=== PATIENT | female | born 1980 | race Caucasian/White ===

== ENCOUNTER 2023-12-27 11:21 | Outpatient (AMB) | payer OTHER, SELFPAY ==
--- NOTE | 2023-12-27 11:26 | A.OFFPC_ITS ---
Vital Signs 12/27/23 11:35 Height 5 ft 5 in Weight 181 lb 8 oz BMI 30.2 BP 102/78 Blood Pressure Location Lt brachial Position Sitting Respiration 14 Pulse 72 Pulse Source Pulse Oximeter Temp 98.6 F Temp Source Oral Pulse Oximetry (%) 99 Oxygen Delivery Method Room Air Intake Visit Reasons: Est Care IBS Intake Note: New patient visit Showplace Manager Required: No Medication List - Last Reconciled 12/27/23 by Barbara Ricks PA-C cetirizine (Zyrtec) 10 mg PO DAILY PRN cholecalciferol (vitamin D3) 25 mcg PO DAILY diphenhydramine HCl (Benadryl Allergy) 50 mg PO Q6H PRN diphenhydramine HCl (Benadryl) 25 mg PO BEDTIME PRN docusate sodium 100 mg PO DAILY methylprednisolone 32 mg PO DAILY psyllium 1 tbsp PO DAILY Tobacco use date assessed: 12/27/23 Dental Screening Dental Screen Date: 12/27/23 Did you have a dental visit in the last 12 months?: Yes Did you have a dental problem in the last 6 months where you did not have access to dental care?: No Was dental information given to patient?: Patient has dentist HPI Est Care IBS HPI Details Patient is a 43-year-old female with a significant past medical history of IBS, insomnia, family hx of breast cancer presenting today to [facility]. She is transferring from [place]. She says that she made this appointment because she has IBS symptoms. Records are not yet available. GI: She states that it is frustrated that her stomach is constantly distended x 15 years. She is frustrated that she continues to have a belly . She reports a persistent pain the RUQ pain but can move around the mid abdomen. She denies any n/v. She does get intermittent diarrhea and constipation. She states that she followed up with Dr. Manzano but did not feel that she did as much of a workup as she would have liked. She did have a colonoscopy in 2021 which was normal. She states that she told her that she had IBS mixed and to try fiber. She did not feel any real benefit from this and states that she researched IBS on the Internet and was frustrated that not more labs were done. She tried acupuncture. She has not tried an elimination diet. She brings in a food journal today. No blood in stool. Colonoscopy: Sep 2021- WNL due in 2031 Mammogram: UTD, gets u/s and MRIs Pap: s/p partial hysterectomy (2019) - fibroid, follows with [facility] Maternal and Paternal grandmothers breast ca, mother had breast ca - pt is brca neg [facility] Medical History (Updated 12/27/23 @ 12:03 by Barbara Ricks PA-C) Alternating constipation and diarrhea RUQ abdominal pain Social History Housing: House Patient Tobacco Use Status: Never used Tobacco e-Cigarette/Vaping Use: Never Used Second Hand Smoke Exposure: Yes (past) service: No Current occupational status: employed and unemployed Cognitive needs: No Hearing needs: No Vision needs: Yes (glasses) Questionnaire PHQ-9 Over the last 2 weeks, how often have you been bothered by any of the following problems? 1. Little interest or pleasure in doing things: not at all 2. Feeling down, depressed, or hopeless: not at all 3. Trouble falling or staying asleep, or sleeping too much: nearly every day 4. Feeling tired or having little energy: more than half the days 5. Poor appetite or overeating: not at all 6. Feeling bad about yourself - or that you are a failure or have let yourself or your family down: not at all 7. Trouble concentrating on things, such as reading the newspaper or watching television: not at all 8. Moving or speaking so slowly that other people could have noticed. Or the opposite - being so fidgety or restless that you have been moving around a lot more than usual: several days 9. Thoughts that you would be better off or of hurting yourself in some way: not at all Total score: 6 Depression Screening Interpretation: Positive (has a hx of insomnia, does not want treatment) Depression Screening Follow-up: Declines treatment Depression Screening Done: Yes 49914 - PHQ-9 Billing: Yes Source: Developed by Drs. Jose Nuñez, Bettina Caballero, Isidoro Rodriguez and colleagues, with an educational petar from [email or web address]. Thrive Questionnaire Date Thrive assessed: 12/27/23 I am a: Patient What is your living situation today?: I have a steady place to live Within the past 12 months, did the food you bought not last and you didn't have the money to get more?: Never true Within the past 12 months, did you worry whether your food would run out before you got money to buy more?: Never true Do you have trouble paying for medicines?: No Do you have trouble getting transportation to medical appointments?: No Do you have trouble paying your heating and electricity bill?: No Do you have trouble taking care of your child, family member or friend?: No Do you have trouble with day-to-day activities such as bathing, preparing meals, shopping, managing finances, etc.?: No Are you currently unemployed and looking for a job?: No Are you interested in more education?: No Please select the resources that you would like help with: None Currently or been in a relationship where the following occur: no concerns reported THRIVE Score: 0 AUDIT C Alcohol Use Questionnaire (AUDIT-C) 1. How often do you have a drink containing alcohol?: Monthly or less 2. How many drinks containing alcohol do you have on a typical day when you are drinking?: 5 or 6 3. How often do you have six or more drinks on one occasion?: Never Total Score: 3 KARLY-7 AMB Questionnaire KARLY-7 Date KARLY - 7 assessed: 12/27/23 Feeling nervous, anxious, or on edge: 1 = Several days Not being able to stop or control worryin = Not at all Worrying too much about different things: 0 = Not at all Trouble relaxin = Not at all Being so restless that it is hard to sit still: 0 = Not at all Becoming easily annoyed or irritable: 0 = Not at all Feeling afraid as if something awful might happen: 0 = Not at all Total KARLY-7 score (0-4 normal; 5-9 mild; 10-14 moderate; 15-21 severe): 1 Source: Developed by Drs. Jose Nuñez, Bettina Caballero, Isidoro Rodriguez and colleagues, with an educational petar from [email or web address]. KARLY-7 Assessment Billing KARLY-7 Assessment Tool: KARLY-7 Assessment 09654 Physical exam (Primary Care) Vital Signs: Last Vital Signs Temp 98.6 F 12/27/23 11:35 Pulse 72 12/27/23 11:35 Resp 14 12/27/23 11:35 BP 102/78 12/27/23 11:35 Pulse Ox 99 12/27/23 11:35 Oxygen Delivery Method Room Air 12/27/23 11:35 BMI result Body Mass Index 30.2 BMI Assessment/Plan discussion: High BMI High, discussed plan: lifestyle and dietary (reducing processed foods) Tobacco/Smoking Status: Tobacco use Status Tobacco use date assessed 12/27/23 12/27/23 11:39 Patient Tobacco Use Status Never used Tobacco 12/27/23 11:39 e-Cigarette/Vaping Use Never Used 12/27/23 11:39 PHQ-9: PHQ-9 Score PHQ-9: Total score 6 12/27/23 11:54 Depression Screening Interpretation: Positive (has a hx of insomnia, does not want treatment) Depression Screening Follow-up: Declines treatment Thrive Assessment: Date of Thrive Assessment Date Thrive assessed 12/27/23 12/27/23 11:39 Currently or been in a relationship where the following occur: no concerns reported Const Orientation/consciousness: patient oriented x3 HENMT Ears: hearing grossly normal bilaterally Neck Thyroid: Thyroid normal Lymphatic: no lymphadenopathy noted Resp Auscultation: clear to auscultation bilaterally Cardio Rate: regular rate Rhythm: regular rhythm Heart sounds: S1 normal heart sound present and S2 normal heart sound present GI Inspection: Yes normal to inspection Palpation (GI): Soft to palpation and Other GI palpation findings present (nontender, no cva tenderness) Auscultation: normoactive bowel sounds Rectal Exam - Female: deferred Skin General skin exam: no rashes or lesions noted Neuro General: patient oriented x3, gait normal and no focal motor deficits Assessment and Plan Assessment & Plan (1) RUQ abdominal pain: Code(s): R10.11 - Right upper quadrant pain Plan: u/s ordered (2) Alternating constipation and diarrhea: Code(s): R19.8 - Other specified symptoms and signs involving the digestive system and abdomen Plan: discussed elimination diet. has an appointment with allergy and immunology in the fall has seen gi labs ordered abdominal exam is benign today. f/u 6-8 weeks or sooner prn. Orders: Orders Complete Blood Count Auto Diff Today R10.11 - Right upper quadrant pain, R19.8 - Other specified symptoms and signs involving the digestive system and abdomen, Z13.220 - Encounter for screening for lipoid disorders Comprehensive [place]. Panel Fast Today R10.11 - Right upper quadrant pain, R19.8 - Other specified symptoms and signs involving the digestive system and abdomen, Z13.220 - Encounter for screening for lipoid disorders Lipid Panel Today R10.11 - Right upper quadrant pain, R19.8 - Other specified symptoms and signs involving the digestive system and abdomen, Z13.220 - Encounter for screening for lipoid disorders TSH reflex Free T4 Today R10.11 - Right upper quadrant pain, R19.8 - Other specified symptoms and signs involving the digestive system and abdomen, Z13.220 - Encounter for screening for lipoid disorders Vitamin B12 and Folate Today R10.11 - Right upper quadrant pain, R19.8 - Other specified symptoms and signs involving the digestive system and abdomen, Z13.220 - Encounter for screening for lipoid disorders Vitamin D 25-OH Total Today E55.9 - Vitamin D deficiency, unspecified, R10.11 - Right upper quadrant pain, R19.8 - Other specified symptoms and signs involving the digestive system and abdomen, Z13.220 - Encounter for screening for lipoid disorders US abdomen limited Today R10.11 - Right upper quadrant pain, R19.8 - Other specified symptoms and signs involving the digestive system and abdomen, Z13.220 - Encounter for screening for lipoid disorders Coding Level of Care Code New Pt Level 3 (73347) Complex EM visit Add On G2211 Diagnoses RUQ abdominal pain R10.11 Alternating constipation and diarrhea R19.8 Additional Codes KARLY-7 Assessment Billing - KARLY-7 Assessment Tool: KARLY-7 Assessment 38916 ([id number])
[2023-12-27 11:35] VITALS: BP 102/78; PULSE 72; RESP 14; TEMP 37; O2SAT 99; BMI 30.2
== END 2023-12-27 12:10 | disposition home or self-care (01) ==
PROVIDERS: Visit Provider Physician Assistant
DX: R10.11 Right upper quadrant pain (principal); R19.8 Other specified symptoms and signs involving the digestive system and abdomen
CPT/HCPCS: 99203; G2211

== ENCOUNTER 2023-12-27 12:13 | Outpatient (REF) | payer OTHER, SELFPAY ==
[2023-12-27 14:27] LABS: MANUAL DIFF FLAG NO
[2023-12-27 14:32] LABS: Basophils Percent Auto 0.6 % (0-2); Eosinophils Absolute Auto 0.2 X10*3/uL (0.0-0.4); Eosinophils Percent Auto 3.2 % (0-4); Hematocrit 39.7 % (37.0-47.0); Hemoglobin 12.8 g/dl (12.0-16.0); Imm Gran Abs Auto 0.01 X10*3/uL (0.00-0.03); Imm Gran Pct Auto 0.2 % (0.0-0.4); Lymphocytes Absolute Auto 1.9 X10*3/uL (1.2-4.9); Lymphocytes Percent Auto 35.7 % (20-40); Mean Corpuscular HGB Conc 32.2 g/dl (31.0-35.0); Mean Corpuscular Hemoglobin 28.7 pg (27.0-33.0); Mean Platelet Volume 11.6 fL (9.4-12.3); Monocytes Absolute Auto 0.4 X10*3/uL (0.1-1.2); Monocytes Percent Auto 6.8 % (2-11); Neutrophils Absolute Auto 2.8 x10*3/uL (2.0-8.3); Neutrophils Percent Auto 53.5 % (45-73); Platelet Count 212 X10*3/uL (160-400); Red Blood Count 4.46 X10*6/uL (4.20-5.50); Red Cell Distribution Width 12.7 % (11.0-16.0); White Blood Count 5.3 X10*3/uL (4.8-10.8)
[2023-12-27 14:50] LABS: Alanine Aminotransferase 25 U/L (0-31); Albumin Level 4.4 g/dL (3.5-5.0); Alkaline Phosphatase 62 U/L (39-117); Anion Gap 13 (12-20); Aspartate Amino Transferase 20 U/L (5-31); Bilirubin Total 1.1 mg/dL (0.0-1.0); Blood Urea Nitrogen 12 mg/dL (9-16); Calcium 9.6 mg/dL (8.4-10.2); Carbon Dioxide 26 mmol/L (22-29); Chloride 104 mmol/L (96-108); Cholesterol 223 mg/dL (<200); Estimated Glomerular Filt Rate > 60; Glucose Fasting 94 mg/dL (60-99); HDL Cholesterol 44 mg/dL (>40); LDL Cholesterol Calculated 148 mg/dL (<100); Potassium 4.3 mmol/L (3.3-5.1); Sodium 139 mmol/L (135-145); Total Protein 7.8 g/dL (6.5-8.0); Triglycerides 159 mg/dL (<150)
[2023-12-27 15:05] LABS: Vitamin D 25-OH Total 40.4 ng/mL (>30)
[2023-12-27 15:44] LABS: Folate 7.4 ng/mL (> or = 4.0); Vitamin B12 461 pg/mL (200-900)
[2023-12-28 08:06] LABS: HBsAGNum1 0.28 S/CO (0.00-0.99); HIV AB/AG Nonreactive (Nonreactive); HIV Num 1 0.04 S/CO (0.00-0.99); Hepatitis B Surface Antigen Negative (Negative); ~HepC Num1 0.14 S/CO (0.00-0.79); ~Hepatitis C Antibody Nonreactive (Nonreactive)
[2023-12-28 08:25] LABS: Syphilis Screen Nonreactive (Nonreactive)
== END 2023-12-27 12:14 | disposition home or self-care (01) ==
LOC: HO.WFDLDS 12:13
PROVIDERS: Obstetrics & Gynecology Gynecology; Visit Provider Physician Assistant
DX: R10.11 Right upper quadrant pain (principal); R19.8 Other specified symptoms and signs involving the digestive system and abdomen; Z13.220 Encounter for screening for lipoid disorders; E55.9 Vitamin D deficiency, unspecified
CPT/HCPCS: 36415; 80053; 80061; 82306; 82607; 82746; 84443; 85025; 86780; 86803; 87340; 87389

== ENCOUNTER 2024-01-24 08:28 | Outpatient (REF) | payer OTHER, SELFPAY ==
--- NOTE | ~2024-01-24 | US_ITS ---
EXAMINATION: US ABDOMEN LIMITED CLINICAL INFORMATION: Right upper quadrant pain. COMPARISON: None available. TECHNIQUE: Real-time imaging of the right upper quadrant abdominal viscera. Limited visualization due to bowel gas. FINDINGS: PANCREAS: Limited visualization of pancreatic tail and head. Imaged portion of pancreatic body is unremarkable. LIVER: Increased hepatic parenchymal heterogeneity and echogenicity could be associated with hepatocellular disease/hepatic steatosis and substantially limits visualization. Correlation with liver function tests and clinical exam recommended to determine further management. GALLBLADDER: No gallstones. No gallbladder wall thickening. COMMON BILE DUCT: Normal in caliber measuring 0.2 cm in diameter. RIGHT KIDNEY: No hydronephrosis. No renal calculi. Limited visualization. The kidney measures 10.9 cm in maximum dimension. FREE FLUID: None. US/US abdomen limited IMPRESSION: Increased hepatic parenchymal heterogeneity and echogenicity could be associated with hepatocellular disease/hepatic steatosis and substantially limits visualization. Correlation with liver function tests and clinical exam recommended to determine further management.
== END 2024-01-24 08:29 | disposition home or self-care (01) ==
LOC: HO.HMGCX 08:28
PROVIDERS: PCP Physician Assistant; Visit Provider Physician Assistant
DX: R10.11 Right upper quadrant pain (principal); R19.8 Other specified symptoms and signs involving the digestive system and abdomen
CPT/HCPCS: 76705

== ENCOUNTER 2024-02-23 10:16 | Outpatient (AMB) | payer OTHER, SELFPAY ==
--- NOTE | 2024-02-23 10:38 | MHC.PC.OV ---
Vital Signs 02/23/24 10:40 Height 5 ft 5 in Weight 173 lb BMI 28.8 BP 106/62 Blood Pressure Location Lt brachial Position Sitting Respiration 13 Pulse 81 Pulse Source Pulse Oximeter Pulse Oximetry (%) 98 Oxygen Delivery Method Room Air Intake Visit Reasons: abdominal pain Intake Note: Patient is here to follow up for abdominal pain. Call Or Contact Centre Coach Required: No Accompanied by: Self / Same As Patient Allergies Iodinated Contrast Media Allergy (Severe, Verified 02/23/24 10:46) skin on fire Tobacco use date assessed: 12/27/23 Dental Screening Dental Screen Date: 12/27/23 HPI HPI Comments History of Present Illness Details Patient is a 43-year-old female with a significant past medical history of IBS, insomnia, family hx of breast cancer presenting for follow up She was recently seen by Barbara Ricks PA-C who noted GI: She states that it is frustrated that her stomach is constantly distended x 15 years. She is frustrated that she continues to have a belly . She reports a persistent pain the RUQ pain but can move around the mid abdomen. She denies any n/v. She does get intermittent diarrhea and constipation. She states that she followed up with Dr. Manzano but did not feel that she did as much of a workup as she would have liked. She did have a colonoscopy in 2021 which was normal. She states that she told her that she had IBS mixed and to try fiber. She did not feel any real benefit from this and states that she researched IBS on the Internet and was frustrated that not more labs were done. She tried acupuncture. She has not tried an elimination diet. She brings in a food journal today. No blood in stool. Colonoscopy: Sep 2021- WNL due in 2031 Mammogram: UTD, gets u/s and MRIs Pap: s/p partial hysterectomy (2019) - fibroid, follows with [facility] Maternal and Paternal grandmothers breast ca, mother had breast ca - pt is brca neg She recommended a food elimination diet Ordered abd u/s-mild hepatic steatosis The patient reports no relief with removing gluten from the diet. She notices some improvement but not consistent with the removal of dairy products. She has not taken any SSRI, TCAD, antispasmodics in the past for her symptoms ROS CONSTITUTIONAL: Denies weight loss, fever and chills. HEENT: Denies changes in vision and hearing. RESPIRATORY: Denies SOB and cough. CV: Denies palpitations and CP GI: Denies abdominal pain, nausea, vomiting and diarrhea. : Denies dysuria and urinary frequency. MSK: Denies new myalgia and joint pain. SKIN: Denies rash and pruritus. NEUROLOGICAL: Denies headache PSYCHIATRIC: Denies recent changes in mood. PHYSICAL EXAM: GENERAL: Alert and oriented x 3. NAD EYES: EOMI. Anicteric. HENT: Moist mucous membranes. No scleral icterus. No cervical lymphadenopathy. LUNGS: Clear to auscultation bilaterally. CARDIOVASCULAR: Regular rate and rhythm. No murmur. No JVD. ABDOMEN: Soft, non-tender +bs EXTREMITIES: No edema. Non-tender. SKIN: No rashes or lesions. Warm. NEUROLOGIC: No focal neurological deficits. CN II-XII grossly intact PSYCHIATRIC: Cooperative. Appropriate mood and affect [facility] Medical History (Updated 02/25/24 @ 08:34 by Naila Washington MD) Alternating constipation and diarrhea RUQ abdominal pain Social History Housing: House Patient Tobacco Use Status: Never used Tobacco e-Cigarette/Vaping Use: Never Used Second Hand Smoke Exposure: Yes (past) service: No Current occupational status: employed Current occupational exposures/hazards: No Cognitive needs: No Hearing needs: No Vision needs: Yes (glasses) Questionnaire Thrive Questionnaire Date Thrive assessed: 12/27/23 KARLY-7 AMB Questionnaire KARLY-7 Date KARLY - 7 assessed: 12/27/23 Source: Developed by Drs. Jose Nuñez, Bettina Caballero, Isidoro Rodriguez and colleagues, with an educational petar from [employer]. Physical exam (Primary Care) Vital Signs: Last Vital Signs Pulse 81 02/23/24 10:40 Resp 13 02/23/24 10:40 BP 106/62 02/23/24 10:40 Pulse Ox 98 02/23/24 10:40 Oxygen Delivery Method Room Air 02/23/24 10:40 BMI result Body Mass Index 28.8 Tobacco/Smoking Status: Tobacco use Status Tobacco use date assessed 12/27/23 02/23/24 10:40 Patient Tobacco Use Status Never used Tobacco 02/23/24 10:40 e-Cigarette/Vaping Use Never Used 02/23/24 10:40 Thrive Assessment: Date of Thrive Assessment Date Thrive assessed 12/27/23 02/23/24 10:40 Assessment and Plan Assessment & Plan (1) IBS (irritable bowel syndrome): Code(s): K58.9 - Irritable bowel syndrome without diarrhea Qualifiers: Irritable bowel syndrome type: with both diarrhea and constipation Qualified Code(s): K58.2 - Mixed irritable bowel syndrome Plan: Trial of linzess to see if helping with incomplete bowel movement overall helps both constipation and diarrhea (2) RUQ abdominal pain: Code(s): R10.11 - Right upper quadrant pain (3) Abdominal pain: Code(s): R10.9 - Unspecified abdominal pain Qualifiers: Abdominal location: generalized Qualified Code(s): R10.84 - Generalized abdominal pain (4) Abnormal ultrasound of abdomen: Code(s): R93.5 - Abnormal findings on diagnostic imaging of other abdominal regions, including retroperitoneum Orders: Orders CT abdomen wo/w IV con 02/23/24 K58.9 - Irritable bowel syndrome without diarrhea, R10.11 - Right upper quadrant pain, R10.9 - Unspecified abdominal pain, R93.5 - Abnormal findings on diagnostic imaging of other abdominal regions, including retroperitoneum Pancreatic Elastase-1 02/23/24 K58.9 - Irritable bowel syndrome without diarrhea, R10.9 - Unspecified abdominal pain, R93.5 - Abnormal findings on diagnostic imaging of other abdominal regions, including retroperitoneum Referrals Pelvic Social Work Administrator Referral M54.50 - Low back pain, unspecified, M95.5 - Acquired deformity of pelvis Medications: New linaclotide (Linzess) 145 mcg PO DAILY 90 caps 3RF 90 days Coding Level of Care Code Est Pt Level 4 (57920) Diagnoses Irritable bowel syndrome with both constipation and diarrhea K58.2 Irritable bowel syndrome type: with both diarrhea and constipation RUQ abdominal pain R10.11 Generalized abdominal pain R10.84 Abdominal location: generalized Abnormal ultrasound of abdomen R93.5
[2024-02-23 10:40] VITALS: BP 106/62; PULSE 81; RESP 13; O2SAT 98; BMI 28.8
== END 2024-02-23 11:18 | disposition home or self-care (01) ==
PROVIDERS: PCP Physician Assistant; Visit Provider Internal Medicine
DX: K58.2 Mixed irritable bowel syndrome (principal); R10.11 Right upper quadrant pain; R10.84 Generalized abdominal pain; R93.5 Abnormal findings on diagnostic imaging of other abdominal regions, including retroperitoneum
CPT/HCPCS: 99214

== ENCOUNTER 2024-03-14 12:00 | Outpatient (REF) | payer OTHER, SELFPAY ==
[2024-03-23 01:14] LABS: Pancreatic Elastase-1 >500 mcg/g
== END 2024-03-14 12:01 | disposition home or self-care (01) ==
LOC: HO.HMGCLNP 12:00
PROVIDERS: PCP Physician Assistant; Visit Provider Internal Medicine
DX: R10.9 Unspecified abdominal pain (principal); R93.5 Abnormal findings on diagnostic imaging of other abdominal regions, including retroperitoneum; K58.9 Irritable bowel syndrome, unspecified
CPT/HCPCS: 82656

== ENCOUNTER 2024-06-25 08:34 | Outpatient (REF) | payer OTHER, SELFPAY ==
[2024-06-25] MEDS: iohexoL 350 MG/ML 100 ML INFUS..BTL IV (10:55)
[2024-06-25] MEDS: Barium Sulfate Oral (Vanilla) 450 ML ORAL.SUSP PO ×2 (10:56)
== END 2024-06-25 08:35 | disposition home or self-care (01) ==
LOC: HO.CT 08:34
PROVIDERS: PCP Physician Assistant; Visit Provider Internal Medicine
DX: R19.8 Other specified symptoms and signs involving the digestive system and abdomen (principal); R10.84 Generalized abdominal pain; R14.0 Abdominal distension (gaseous)
CPT/HCPCS: 74178; Q9967

== ENCOUNTER → 2024-06-25 08:35 | Outpatient (BNV) | payer OTHER, SELFPAY | PROVIDERS: PCP Physician Assistant; Visit Provider Radiology Diagnostic Radiology | DX: R19.8 Other specified symptoms and signs involving the digestive system and abdomen (principal) | CPT/HCPCS: 74178 ==

== ENCOUNTER 2024-11-08 08:55 | Outpatient (AMB) | payer OTHER, SELFPAY ==
--- NOTE | 2024-11-08 09:13 | MHC.OFFWIV ---
Intake Vital Signs 11/08/24 09:23 Height 5 ft 5 in Weight 177 lb BMI 29.5 BP 127/85 Blood Pressure Location Rt brachial Position Sitting Respiration 16 Pulse 81 Pulse Source Pulse Oximeter Temp 98.1 F Temp Source Oral Pulse Oximetry (%) 99 Oxygen Delivery Method Room Air Intake Visit Reasons: EST/CONTACT DREAMTITIS/STILL ITCHY Intake Note: patient here c/o contact Dermititis she has surgery oct 08, 2024 and the glue they put on her to close the incision gave her a reaction and they gave her 2 rounds of steroids and she is still itchy. 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 She notes that she had bilateral oophorectomy at [facility] oncology/surgery on 10/08/2024 and had a reaction to the glue that was used to close the incisions to her abdomen. She has been experiencing severe itching to her entire abdomen and progress to her arms and upper thighs. She has multiple incisions to abdomen did have completely healed. She had 2 rounds of p.o prednisone and completed the second 2 days ago but the area is still itchy. She is on Zyrtec daily, Benadryl p.o. every 6 hours as needed, and femotidine 20 mg BID. She has also been applying OTC hydrocortisone cream without improvement. The itching has been disrupting her sleep. [facility] Medical History (Updated 11/08/24 @ 09:52 by Jf Farley CNP) Alternating constipation and diarrhea RUQ abdominal pain Social History Housing: House Patient Tobacco Use Status: Never used Tobacco e-Cigarette/Vaping Use: Never Used Second Hand Smoke Exposure: Yes (past) service: No Current occupational status: employed Current occupational exposures/hazards: No Cognitive needs: No Hearing needs: No Vision needs: Yes (glasses) Review of Systems Const Details: Denies chills, Denies fatigue, Denies fever(s), Denies headache(s) and Denies weakness Cardiac Denies chest pain, Denies claudication, Denies leg edema, Denies lightheadedness, Denies palpitations, Denies dyspnea, Denies dyspnea on exertion, Denies orthopnea and Denies other (Loss of consciousness) Resp Denies cough, Denies excessive phlegm production, Denies dyspnea, Denies dyspnea on exertion, Denies snoring and Denies wheezing Skin Reports as per HPI Physical Exam Vital Signs: Last Vital Signs Temp 98.1 F 11/08/24 09:23 Pulse 81 11/08/24 09:23 Resp 16 11/08/24 09:23 BP 127/85 11/08/24 09:23 Pulse Ox 99 11/08/24 09:23 Oxygen Delivery Method Room Air 11/08/24 09:23 BMI result Body Mass Index 29.5 Const Other: General: comfortable and no acute distress Orientation/consciousness: patient oriented x3 Chest Chest palpation & inspection: normal inspection of the chest Resp Auscultation: clear to auscultation bilaterally Cardiac Palpation: normal PMI Heart sounds: S1 normal heart sound present, S2 normal heart sound present, no gallops, no murmur, no rubs Skin Multiple small incision to the abdomen with mild erythema and healthy scabs, no overt infection. Mild erythemic macular rash to her entire abdomen, no rash to arms or upper thighs Assessment & Plan Assessment & Plan (1) Allergic dermatitis: Code(s): L23.9 - Allergic contact dermatitis, unspecified cause Plan: Reports severe itching to abdomen, arms, and upper thigh following bilateral oophorectomy almost a month ago. The itching has been refractory to multiple treatment regimen. Multiple small incision to the abdomen with mild erythema and healthy scabs, no overt infection. Mild erythemic macular rash to her entire abdomen, no rash to arms or upper thighs. Benadryl discontinued at this time. Hydroxyzine 25 mg in the morning and 50 mg at night ordered as needed for itching; instructed on the risks, benefits, and potential adverse reactions of the medication. Continue to take famotidine as prescribed and use hydrocortisone cream as needed. Follow-up with PCP with worsening or new signs and symptoms. Verbalized understanding and agreed with treatment plan. Medications: New hydroxyzine HCl Take 25 mg in the morning and 50 mg at night as needed for itching 90 tabs 0RF itching Discontinued diphenhydramine HCl (Benadryl Allergy) Take one tab Benadryl 50mg oral 1 hours prior to exam. Discontinued Reason: Doctor's Order 50 mg PO Q6H PRN 1 tab 0RF allergic reaction Coding Level of Care Code Est Pt Level 3 (22787) Diagnoses Allergic dermatitis L23.9
[2024-11-08 09:23] VITALS: BP 127/85; PULSE 81; RESP 16; TEMP 36.7; O2SAT 99; BMI 29.5
== END 2024-11-08 09:47 | disposition home or self-care (01) ==
PROVIDERS: PCP Physician Assistant; Visit Provider Nurse Practitioner Family
DX: L23.9 Allergic contact dermatitis, unspecified cause (principal)

== ENCOUNTER → 2024-11-08 08:55 | Outpatient (BNVA) | payer OTHER, SELFPAY | PROVIDERS: PCP Physician Assistant | DX: L23.9 Allergic contact dermatitis, unspecified cause (principal) | CPT/HCPCS: 99212 ==

== ENCOUNTER 2025-01-01 15:25 | Outpatient (AMB) | payer OTHER, SELFPAY ==
--- OUTSIDE RECORDS SUMMARY | 2025-01-01 15:28 | XMS_ITS | Patient Health Record ---
Author Organization [facility] Address [address] [address] Care Team Providers Care Gas Desulfurizer Name Role Phone Delphine Whitney Unavailable [phone] Allergies Allergen (clinical drug ingredient) Drug/Non Drug Allergy documented on EMR Reaction Allergy Type Onset Date Status Gadolinium and/or gadolinium compound (FN) Gadolinium Derivatives MRI Contrast Drug Allergy Active Reason For Referral No Information Medications Medication SIG (Take, Route, Frequency, Duration) Notes Start Date End Date Status Magnesium 200 MG 2 tablets with a faye l Orally Once a day Active Vitamin D3 0697063 UNIT/GM as directed Active Collagen - as directed Externally Active Multi Complete - as directed Orally Active ZyrTEC 10 MG 1 tablet Orally Once a day Active hydrOXYzine HCl 25 MG/ML as directed Intramuscular Active Famotidine 20 MG 1 tablet at bedtime as needed Orally Once a day Active ALPRAZolam 0.25 MG 1 tablet Orally as needed Active Norethindrone Active Advil PM 200-38 MG 2 tablets at bedtime as needed Orally Once a day for 30 day(s) Active Vivelle-Dot 0.0375 MG/24HR 1 patch to sk in Transdermal Two times a Week Active Social History Tobacco Use: Social History Observation Description Date Details (start date - stop date) Never Smoker NA - NA Sexual History Question Answer Notes Had sex in the past 12 months (vaginal, oral, or anal)? No AUDIT-C (Standard) Question Answer Notes Did you have a drink contain ing alcohol in the past year? Yes How often did you have a dri nk containing alcohol in the past year? 2 to 4 times a month (2 points) How many drinks did you have on a typical day when you were drinking in the past year? 1 or 2 drinks (0 point) How often did you have six o r more drinks on one occasion in the past year? Never (0 point) Points 2 Interpretation Negative Tobacco Control (Standard) Question Answer Notes Tobacco use: Nonsmoker Problems Problem Type SNOMED Code ICD Code Onset Dates Problem Status W/U Status Risk Notes Problem Excessive and frequent menstruation (992417819) Excessive and frequent menstruation with regular cycle (N92.0) Active confirmed Problem Hyperlipidemia (04235730) Hyperlipidemia, unspecified (E78.5) Active confirmed Problem Abnormal findings on diagnostic imaging of breast (502793045) Other abnormal and inconclusive findings on diagnostic imaging of breast (R92.8) Active confirmed Problem History of neoplasm (194358201) Personal history of other benign neoplasm (Z86.018) Active confirmed Problem Vitamin D deficiency (86071992) Vitamin D deficiency, unspecified (E55.9) Active confirmed Problem Irritable bowel syndrome (72416829) Mixed irritable bowel syndrome (K58.2) Active confirmed Vital Signs Temperature 97.3 degrees Fahrenheit 12/16/2024 Blood pressure diastolic 74 mm Hg 12/16/2024 Height 65 in 12/16/2024 Blood pressure systolic 126 mm Hg 12/16/2024 Weight 181 lbs 12/16/2024 BMI 30.12 kg/m2 12/16/2024 Encounters Encounter Location Date Provider Diagnosis [address] [address] 12/16/2024 Delphine Whitney Encounter for gynecological examination (general) (routine) without abnormal findings Z01.419 ; Encounter for screening mammogram for malignant neoplasm of breast Z12.31 ; Hormone replacement therapy Z79.890 ; Personal history of other diseases of the female genital tract Z87.42 ; Personal history of other benign neoplasm Z86.018 ; Family history of malignant neoplasm of breast Z80.3 and Dense breasts, unspecified R92.30 [place] [address] [employer] [address] [address] 12/31/2024 Delphine Whitney [address] [address] 08/15/2024 Delphine Whitney [address] [address] 09/13/2024 Delphine Whitney Assessments Encounter Date Diagnosis (ICD Code) Assessment Notes Treatment Notes Treatment Clinical Notes Section Notes 12/16/2024 Encounter for gynecological examination (general) (routine) without abnormal findings (ICD-10 - Z01.419) NO MORE PAP TESTS. VIT D LEVEL WAS ORDERED ON PAT'S REQUEST. 12/16/2024 Encounter for screening mammogram for malignant neoplasm of breast (ICD-10 - Z12.31) REGULAR MAMMOGRAMS AND SBE'S WERE RECOMMENDED. 12/16/2024 Hormone replacement therapy (ICD-10 - Z79.890) DISCUSSED HRT, ITS BENEFITS AND RISKS. PAT UNDFERSTANDS AND ACCEPTS RISKS AND WANTS TO CONTINUE. RX'S ARE GIVEN BY ANOTHER CHIEF JAILER. 12/16/2024 Personal history of other diseases of the female genital tract (ICD-10 - Z87.42) DISCUSSED PREVIOUS HX OF ENDOMETRIOSIS AND HX OF SOPHIE AND BSO. DISCUSSED HOW ESTROGEN FUELS ENDOMETRIOSIS BUT HER DOSE IS LOW AND IS BALANCED BY PROGESTERONE. 12/16/2024 Personal history of other benign neoplasm (ICD-10 - Z86.018) DISCUSSED PREVIOUS BREAST BIOPSY SHOWING PASH. REASSURED PAT THIS IS A BENIGN DX. 12/16/2024 Family history of malignant neoplasm of breast (ICD-10 - Z80.3) PAT'S MOTHER HAD BREAST CA INCREASING HER BREAST CA RISK. 12/16/2024 Dense breasts, unspecified (ICD-10 - R92.30) DISCUSSED DENSE BREASTS ON MAMMOGRAM AND ITS IMPLICATIONS. SCREENING BREAST ULTRASOUND THIS MONTH. WILL NEED SCREENING BREAST MRI IN 2025. Plan Of Treatment Pending Test Test Name Order Date Sonohysterogram 05/20/2019 Lipid Panel 12/01/2023 Urinalysis 12/16/2024 ENDOMETRIAL BX 05/20/2019 COMPLETE BLOOD COUNT 05/20/2019 LIPID PANEL-B 11/30/2022 MM Digital Mammo Screening 11/30/2022 MM Digital Mammo Screening 12/01/2023 MM Digital Mammo Screening 06/28/2021 MM Digital Mammo Screening 12/16/2024 Screening Bilateral Breast Ultrasound Left breast ultrasound guided breast bio psy 05/05/2022 MRI Guided Left Breast Biopsy with Contr ast 05/30/2022 HBsAg Screen-[id number] 12/01/2023 Vitamin D, 44-Odvvqxv-[id number] 12/16/2024 HIV Ab/p24 Ag with [id number] 024 [id number] IGP, CtNg Culture 30 Plus Comp. Metabolic Panel [id number] 2023 RPR Qn+TP [id number] 12/01/2023 HCV Antibody-[id number] 12/01/2023 Next Appt Details Provider Name:Delphine tong, 12/22/2025 08:20:00 AM, [address], [address], [place], [address], Insurance Providers Payer Name Payer Address Payer Phone Subscriber Number Group Number Insured Name Patient Relationship to Insured Coverage Start Date Coverage End Date [facility] [address] [address] [place] [address] [id number] CHARLY GILLIAM Self - patient is the insured Medical (General) History Medical History History ICD Code Excessive and frequent menstruation with regular cycle N92.0 Leiomyoma of uterus, unspecified D25.9 Mixed irritable bowel syndrome K58.2 Other abnormal and inconclusive findings on diagnostic imaging of breast R92.8 Inconclusive mammogram R92.2 Other fatigue R53.83 Abdominal distension (gaseous) R14.0 Unspecified lump in left breast, subareo lar N63.42 Unspecified lump in the left breast, upp er inner quadrant N63.22 Mammographic heterogeneous density, bila teral breasts R92.333 Dense breasts, unspecified R92.30 Hyperlipidemia, unspecified E78.5 Other abnormal and inconclusive findings on diagnostic imaging of breast R92.8 Surgical History Surgery Date(Month/Year) Hysteroscopy 2017 Hysterectomy - Dr. Navarro 07/2019 Hospitalization History Reason Date(Month/Year) See Surgical Hx
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
[2025-01-01 15:45] VITALS: BP 110/82; PULSE 78; RESP 14; O2SAT 98; BMI 30.5
== END 2025-01-01 16:09 | disposition home or self-care (01) ==
LOC: HO.HMCFM 15:25
PROVIDERS: PCP Physician Assistant; Visit Provider Physician Assistant
DX: Z00.00 Encounter for general adult medical examination without abnormal findings (principal); N80.9 Endometriosis, unspecified; M62.89 Other specified disorders of muscle

== ENCOUNTER → 2025-01-01 15:25 | Outpatient (BNVA) | payer OTHER, SELFPAY | PROVIDERS: PCP Physician Assistant; Visit Provider Physician Assistant | DX: Z00.00 Encounter for general adult medical examination without abnormal findings (principal); M62.89 Other specified disorders of muscle; Z90.710 Acquired absence of both cervix and uterus | CPT/HCPCS: 96127; 99396 ==

== ENCOUNTER 2025-01-29 12:33 | Outpatient (REF) | payer OTHER, SELFPAY ==
--- OUTSIDE RECORDS SUMMARY | 2025-01-29 14:23 | XMS_ITS | Patient Health Record ---
Author Organization [facility] Address [address] [address] Care Team Providers Care Sports Medicine Masseur Name Role Phone Delphine Whitney Unavailable [phone] Allergies Allergen (clinical drug ingredient) Drug/Non Drug Allergy documented on EMR Reaction Allergy Type Onset Date Status Gadolinium and/or gadolinium compound (FN) Gadolinium Derivatives MRI Contrast Drug Allergy Active Reason For Referral No Information Medications Medication SIG (Take, Route, Frequency, Duration) Notes Start Date End Date Status Magnesium 200 MG 2 tablets with a faye l Orally Once a day Active Vitamin D3 6802346 UNIT/GM as directed Active Collagen - as [...] Risk Notes Problem Excessive and frequent menstruation (415290804) Excessive and frequent menstruation with regular cycle (N92.0) Active confirmed Problem Hyperlipidemia (32930886) Hyperlipidemia, unspecified (E78.5) Active confirmed Problem Abnormal findings on diagnostic imaging of breast (844559691) Other abnormal and inconclusive findings on diagnostic imaging of breast (R92.8) Active confirmed Problem History of neoplasm (220370849) Personal history of other benign neoplasm (Z86.018) Active confirmed Problem Vitamin D deficiency (92078561) Vitamin D deficiency, unspecified (E55.9) Active confirmed Problem Irritable bowel syndrome (87222595) Mixed irritable bowel syndrome (K58.2) Active confirmed Vital Signs Temperature 97.3 degrees Fahrenheit 12/16/2024 Blood pressure diastolic 74 mm Hg 12/16/2024 Height 65 in 12/16/2024 Blood pressure systolic 126 mm Hg 12/16/2024 Weight 181 lbs 12/16/2024 BMI 30.12 kg/m2 12/16/2024 Encounters Encounter Location Date Provider Diagnosis [address] [address] 12/16/2024 Delphine hWitney Encounter for gynecological examination (general) (routine) without abnormal findings Z01.419 ; Encounter for screening mammogram for malignant neoplasm of breast Z12.31 ; Hormone replacement therapy Z79.890 ; Personal history of other diseases of the female genital tract Z87.42 ; Personal history of other benign neoplasm Z86.018 ; Family history of malignant neoplasm of breast Z80.3 and Dense breasts, unspecified R92.30 [place] [address] [facility] [address] [address] 01/24/2025 Delphine Whitney [address] [address] 08/15/2024 Delphine Whitney [address] [address] 09/13/2024 Delphine Whitney [facility] [address] [facility] [address] [place] [address] 12/31/2024 Delphine Whitney [facility] [address] [facility] [address] [place] [address] 01/23/2025 Delphine Whitney Assessments Encounter Date Diagnosis (ICD [...] TO CONTINUE. RX'S ARE GIVEN BY ANOTHER SUPERVISOR [employer]. 12/16/2024 Personal history of other diseases of [...] Breast Biopsy with Contr ast 05/30/2022 HBsAg Screen-[id number] 12/01/2023 Vitamin D, 61-[id number] 12/16/2024 HIV Ab/p24 Ag with Reflex-[id number] 024 [id number] IGP, CtNg Culture 30 Plus Comp. Metabolic Panel [id number] 2023 RPR Qn+TP [id number] 12/01/2023 HCV Antibody-[id number] 12/01/2023 Next Appt Details Provider Name:Delphine tong, 12/22/2025 08:20:00 AM, [address], [address], [place], [address], Insurance Providers Payer Name Payer Address Payer Phone Subscriber Number Group Number Insured Name Patient Relationship to Insured Coverage Start Date Coverage End Date [facility] [address] [address] [place] [address] [phone] [id number] CHARLY GILLIAM Self - patient is the [...]
[2025-01-29 16:15] LABS: MANUAL DIFF FLAG NO
[2025-01-29 16:21] LABS: Basophils Percent Auto 0.8 % (0-2); Eosinophils Absolute Auto 0.2 X10*3/uL (0.0-0.4); Eosinophils Percent Auto 3.5 % (0-4); Hematocrit 38.3 % (37.0-47.0); Hemoglobin 12.3 g/dl (12.0-16.0); Imm Gran Abs Auto 0.01 X10*3/uL (0.00-0.03); Imm Gran Pct Auto 0.2 % (0.0-0.4); Lymphocytes Absolute Auto 1.2 X10*3/uL (1.2-4.9); Lymphocytes Percent Auto 23.9 % (20-40); Mean Corpuscular HGB Conc 32.1 g/dl (31.0-35.0); Mean Corpuscular Hemoglobin 29.4 pg (27.0-33.0); Mean Corpuscular Volume 91.4 fL (80.0-98.0); Mean Platelet Volume 11.5 fL (9.4-12.3); Monocytes Absolute Auto 0.3 X10*3/uL (0.1-1.2); Monocytes Percent Auto 7.1 % (2-11); Neutrophils Absolute Auto 3.1 x10*3/uL (2.0-8.3); Neutrophils Percent Auto 64.5 % (45-73); Platelet Count 233 X10*3/uL (160-400); Red Blood Count 4.19 X10*6/uL (4.20-5.50); Red Cell Distribution Width 12.5 % (11.0-16.0); White Blood Count 4.8 X10*3/uL (4.8-10.8)
[2025-01-29 16:35] LABS: Appearance Urine Clear; Color Urine Yellow; Glucose Urine UA Negative (Negative); Leukocyte Esterase Urine Negative (Negative); Nitrite Urine Negative (Negative); UMIC TRIGGER UACC YES; Urine Blood Trace (Negative); Urine Ketones Negative (Negative); Urine Protein Negative (Neg-Trace)
[2025-01-29 16:42] LABS: Alanine Aminotransferase 18 U/L (0-31); Albumin Level 4.6 g/dL (3.5-5.0); Alkaline Phosphatase 45 U/L (39-117); Anion Gap 12 (12-20); Aspartate Amino Transferase 21 U/L (5-31); Bilirubin Total 0.5 mg/dL (0.0-1.0); Blood Urea Nitrogen 11 mg/dL (9-16); Calcium 9.3 mg/dL (8.4-10.2); Carbon Dioxide 22 mmol/L (22-29); Chloride 109 mmol/L (96-108); Cholesterol 237 mg/dL (<200); Estimated Glomerular Filt Rate > 60; Glucose Fasting 87 mg/dL (60-99); HDL Cholesterol 35 mg/dL (>40); LDL Cholesterol Calculated 166 mg/dL (<100); Magnesium 2.1 mg/dL (1.6-2.6); Sodium 139 mmol/L (135-145); Total Protein 7.5 g/dL (6.5-8.0); Triglycerides 180 mg/dL (<150)
[2025-01-29 16:44] LABS: Bacteria Urine 1+ (None Seen); Hyaline Casts Urine 0-2 /LPF (0-2); RBC Urine 0-2 /HPF (0-2); Squamous Epithelial Cell Urine 0-2 /HPF (0-2); WBC Urine 0-5 /HPF (0-5)
[2025-01-29 16:58] LABS: Vitamin D 25-OH Total 51.8 ng/mL (>30)
[2025-01-29 16:59] LABS: TSH reflex Free T4 1.06 uIU/mL (0.32-4.0)
[2025-01-29 17:08] LABS: Folate 7.8 ng/mL (> or = 4.0); Vitamin B12 286 pg/mL (200-900)
[2025-02-13 05:47] LABS: Estradiol Free 0.33 pg/mL; Estradiol, Ultrasensitive 14 pg/mL
== END 2025-01-29 12:34 | disposition home or self-care (01) ==
LOC: HO.HMGCLDS 12:33
PROVIDERS: Student in an Organized Health Care Education/Training Program; PCP Physician Assistant; Referring Provider Obstetrics & Gynecology Gynecology; Visit Provider Physician Assistant
DX: Z00.00 Encounter for general adult medical examination without abnormal findings (principal); E55.9 Vitamin D deficiency, unspecified
CPT/HCPCS: 36415; 80053; 80061; 81001; 82306; 82607; 82670; 82681; 82746; 83735; 84443; 85025

== ENCOUNTER 2025-07-09 08:17 | Outpatient (AMB) | payer OTHER, SELFPAY ==
--- NOTE | 2025-07-09 08:24 | A.OFFPC_ITS ---
Vital Signs 07/09/25 08:26 Weight 176 lb 2 oz BP 116/84 Blood Pressure Location Rt brachial Position Sitting Respiration 14 Pulse 66 Pulse Source Pulse Oximeter Pulse Oximetry (%) 98 Oxygen Delivery Method Room Air Intake Visit Reasons: 6 Months f/u Allergies Iodinated Contrast Media Allergy (Severe, Verified 01/01/25 15:57) skin on fire adhesive Allergy (Mild, Verified 01/01/25 15:57) Itching sugerical glue Allergy (Severe, Uncoded 01/01/25 15:57) contact dermititis and hives Medication List - Last Reconciled 07/09/25 by Barbara Ricks PA-C cetirizine (Zyrtec) 10 mg PO DAILY PRN estradiol (Minivelle) 1 patch topical 2XW ibuprofen mg PO progesterone micronized 200 mg PO DAILY Tobacco use date assessed: 07/09/25 Dental Screening Dental Screen Date: 01/01/25 HPI 6 Months f/u HPI Details Patient is a 45-year-old female who presents today for a follow up. She has been feeling a lot of fatigue and thinks it is related to life and stress. She is interested in getting her vitamins checked as she is following with a dietitian and trying to get enough of a balance in her diet. Derm: she has been getting a lot of skin reactions since her total hysterectomy last winter. She says it now appears that she is sensitive to everything from adhesives, some medications, topical creams, gloves, she has even reactive to getting her nails done. 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 Since the total hysterectomy her abdominal pain has gotten a lot better Breast: recently dx with intraductal papillary on the left 01/20/25 and is s/p surgery w/ Dr. Rodriguez and follows every other year with mammo and mri. Mammo: UTD, Mortgage Loan Underwriter: Following with specialist for endometriosis and starting hormones Bone density: 02/18/25 WNL Colonoscopy: 2020 UTD due in 2030 [facility] Medical History (Updated 07/09/25 @ 08:56 by Barbara Ricks PA-C) Alternating constipation and diarrhea RUQ abdominal pain Surgical History History of bilateral oophorectomy Social History (Updated 07/09/25 @ 08:38 by REBECA Mckeon Housing: House Alcohol intake: current Patient Tobacco Use Status: Never used Tobacco e-Cigarette/Vaping Use: Never Used Second Hand Smoke Exposure: Yes (past) Use of substances other than those prescribed or required for medical reasons: No service: No Current occupational status: student Cognitive needs: No Hearing needs: No Vision needs: Yes (glasses) Questionnaire Thrive Questionnaire Date Thrive assessed: 12/29/24 I am a: Patient What is your living situation today?: I have a steady place to live Within the past 12 months, did the food you bought not last and you didn't have the money to get more?: Never true Within the past 12 months, did you worry whether your food would run out before you got money to buy more?: Never true Do you have trouble paying for medicines?: No Do you have trouble getting transportation to medical appointments?: No Do you have trouble paying your heating and electricity bill?: No Do you have trouble taking care of your child, family member or friend?: No Do you have trouble with day-to-day activities such as bathing, preparing meals, shopping, managing finances, etc.?: No Are you currently unemployed and looking for a job?: Yes Are you interested in more education?: Yes Please select the resources that you would like help with: Job search/training Currently or been in a relationship where the following occur: Controlled Emotionally THRIVE Score: 1 AUDIT C Alcohol Use Questionnaire (AUDIT-C) 1. How often do you have a drink containing alcohol?: 2-4 times a month 2. How many drinks containing alcohol do you have on a typical day when you are drinking?: 1 or 2 3. How often do you have six or more drinks on one occasion?: Never Total Score: 2 KARLY-7 AMB Questionnaire KARLY-7 Date KARLY - 7 assessed: 12/27/23 Source: Developed by Drs. Jose Nuñez, Bettina Caballero, Isidoro Rodriguez and colleagues, with an educational petar from [employer]. Physical exam (Primary Care) Vital Signs: Last Vital Signs Pulse 66 07/09/25 08:26 Resp 14 07/09/25 08:26 BP 116/84 07/09/25 08:26 Pulse Ox 98 07/09/25 08:26 Oxygen Delivery Method Room Air 07/09/25 08:26 Tobacco/Smoking Status: Tobacco use Status Tobacco use date assessed 07/09/25 07/09/25 08:39 Patient Tobacco Use Status Never used Tobacco 07/09/25 08:38 e-Cigarette/Vaping Use Never Used 07/09/25 08:38 Thrive Assessment: Date of Thrive Assessment Date Thrive assessed 12/29/24 07/09/25 08:25 Currently or been in a relationship where the following occur: Controlled Emotionally Const Orientation/consciousness: patient oriented x3 HENMT Ears: hearing grossly normal bilaterally Neck Thyroid: Thyroid normal Lymphatic: no lymphadenopathy noted Resp Auscultation: clear to auscultation bilaterally Cardio Rate: regular rate Rhythm: regular rhythm Heart sounds: S1 normal heart sound present and S2 normal heart sound present GI Inspection: Yes normal to inspection Palpation (GI): Soft to palpation and Other GI palpation findings present (nontender, no cva tenderness) Auscultation: normoactive bowel sounds Rectal Exam - Female: deferred Skin General skin exam: no rashes or lesions noted Neuro General: patient oriented x3, gait normal and no focal motor deficits Coding Level of Care Code Est Pt Level 4 (23033) Complex visit Add On G2211 Diagnoses Allergic dermatitis L23.9 Endometriosis N80.9 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 We will recheck (5) Fatigue: Code(s): R53.83 - Other fatigue Category: Medical Plan: Labs ordered today Orders: Orders LIZBETH Reflex Titer and Pattern Today D05.12 - Intraductal carcinoma in situ of left breast, L23.9 - Allergic contact dermatitis, unspecified cause, N80.9 - Endometriosis, unspecified TSH reflex Free T4 Today D05.12 - Intraductal carcinoma in situ of left breast, L23.9 - Allergic contact dermatitis, unspecified cause, N80.9 - Endometriosis, unspecified Comprehensive Met. Panel Today D05.12 - Intraductal carcinoma in situ of left breast, L23.9 - Allergic contact dermatitis, unspecified cause, N80.9 - Endometriosis, unspecified Complete Blood Count Auto Diff Today D05.12 - Intraductal carcinoma in situ of left breast, L23.9 - Allergic contact dermatitis, unspecified cause, N80.9 - Endometriosis, unspecified Erythrocyte Sedimentation Rate Today D05.12 - Intraductal carcinoma in situ of left breast, L23.9 - Allergic contact dermatitis, unspecified cause, N80.9 - Endometriosis, unspecified Lipid Panel Today D05.12 - Intraductal carcinoma in situ of left breast, L23.9 - Allergic contact dermatitis, unspecified cause, N80.9 - Endometriosis, unspecified C Reactive Protein Today D05.12 - Intraductal carcinoma in situ of left breast, L23.9 - Allergic contact dermatitis, unspecified cause, N80.9 - Endometriosis, unspecified Vitamin B12 and Folate Today E53.8 - Deficiency of other specified B group vitamins IRON PROFILE Today E53.8 - Deficiency of other specified B group vitamins, R53.83 - Other fatigue Referrals Allergy & Immunology Referral L23.9 - Allergic contact dermatitis, unspecified cause Dermatology Referral Z12.83 - Encounter for screening for malignant neoplasm of skin
[2025-07-09 08:26] VITALS: BP 116/84; PULSE 66; RESP 14; O2SAT 98
--- OUTSIDE RECORDS SUMMARY | 2025-07-09 08:38 | XMS_ITS | Clinical Summary ---
Author Organization [facility] [place] [address] Care Team Providers Care Clerk Telegraph Service Name Role Phone Kelly Arroyo MD Primary Care Provider [phone] Family History Medical History Relation Comments Prostate Cancer Maternal Grandfather Breast Cancer Maternal Grandmother ipsilateral breast cancer at 75 Breast Cancer Mother Breast Cancer Paternal Grandmother Melanoma Paternal Grandmother Relation Status Comments Father Alive Maternal Grandfather (Age 76) Maternal Grandmother (Age 83) Mother Alive Paternal Grandfather (Age 44) Paternal Grandmother Alive Sister Alive Social History Tobacco Use Types Packs/Day Years Used Date Smoking Tobacco: Never Assessed Comments Unknown Sex and Gender Information Value Date Recorded Sex Assigned at Not on file Legal Sex Female 3:48 PM EDT Gender Identity Not on file Sexual Orientation Not on file Plan of Treatment Health Maintenance Due Date Last Done Comments CT Colonography 1978 Colonoscopy 1978 Colorectal Cancer Screening 1978 FIT DNA 1978 FIT 1978 Sigmoidoscopy (10 year) with FIT yearly 1978 Sigmoidoscopy 1978 HIV screen 1996 Hepatitis C Screening 1996 Hepatitis B vaccine (0-59 yrs) and Risk (1) 1997 Tetanus/Diphtheria/Pertussis Vaccines (1 - Tdap) 04/12 HPV test 2008 PAP Smear 2008 Breast Cancer Share Decision Needed 2018 Breast Cancer screening 2018 Covid-19 Vaccine ( - 2024- season) 2025 Influenza (Flu) vaccine (1 o f 1 - Influenza standard series) 04/14/2025 Insurance [employer] Care Teams Clerk Telegraph Service Relationship Specialty Start Date End Date Kelly Arroyo MD [address] [place] [address] PCP - General Family Medicine 03/20/19
--- OUTSIDE RECORDS SUMMARY | 2025-07-09 08:38 | XMS_ITS | Patient Health Record ---
Author Organization [facility] Address [address] [place] [address] Care Team Providers Care Electric Motor Mechanic Name Role Phone JCARLOS SUBRAMANIAN PA-C Primary Care Provider Unavail able Delphine Whitney Unavailable [phone] Allergies Allergen (clinical drug ingredient) Drug/Non Drug Allergy documented on EMR Reaction Allergy Type Onset Date Status Gadolinium and/or gadolinium compound (FN) Gadolinium Derivatives MRI Contrast Drug Allergy Active Reason For Referral No Information Medications Medication SIG (Take, Route, Frequency, Duration) Notes Start Date End Date Status Magnesium 200 MG 2 tablets with a faye l Orally Once a day Active Vitamin D3 2349803 UNIT/GM as directed Active Collagen - as [...] at bedtime as needed Orally Once a day; Duration: 30 day(s) Active Vivelle-Dot 0.0375 MG/24HR 1 [...] Risk Notes Problem Excessive and frequent menstruation (351309418) Excessive and frequent menstruation with regular cycle (N92.0) Active confirmed Problem Hyperlipidemia (21579745) Hyperlipidemia, unspecified (E78.5) Active confirmed Problem Abnormal findings on diagnostic imaging of breast (294167285) Other abnormal and inconclusive findings on diagnostic imaging of breast (R92.8) Active confirmed Problem History of neoplasm (599231065) Personal history of other benign neoplasm (Z86.018) Active confirmed Problem Vitamin D deficiency (80912745) Vitamin D deficiency, unspecified (E55.9) Active confirmed Problem Irritable bowel syndrome (74164671) Mixed irritable bowel syndrome (K58.2) Active confirmed Vital Signs Temperature 97.3 degrees Fahrenheit 12/16/2024 Blood pressure diastolic 74 mm Hg 12/16/2024 Height 65 in 12/16/2024 Blood pressure systolic 126 mm Hg 12/16/2024 Weight 181 lbs 12/16/2024 BMI 30.12 kg/m2 12/16/2024 Encounters Encounter Location Date Provider Diagnosis [address] [address] 12/16/2024 Delphine Whitney Encounter for gynecological examination (general) (routine) without abnormal findings Z01.419 ; Encounter for screening mammogram for malignant neoplasm of breast Z12.31 ; Hormone replacement therapy Z79.890 ; Personal history of other diseases of the female genital tract Z87.42 ; Personal history of other benign neoplasm Z86.018 ; Family history of malignant neoplasm of breast Z80.3 and Dense breasts, unspecified R92.[address] [address] 01/24/2025 Delphine Whitney [address] [address] 08/15/2024 Delphine Whitney [facility] [address] [place] [address] 09/13/2024 Delphine Whitney [facility] [address] [place] [address] 12/31/2024 Delphine Whitney [facility] [address] [place] [address] 01/23/2025 Delphine Whitney [facility] [address] [place] [address] 01/30/2025 Delphine Whitney [facility] [address] [place] [address] 02/11/2025 Delphine Whitney Assessments Encounter Date Diagnosis (ICD [...] TO CONTINUE. RX'S ARE GIVEN BY ANOTHER ENGINEER FIRST ASSISTANT. 12/16/2024 Personal history of other diseases of [...] Breast Biopsy with Contr ast 05/30/2022 HBsAg Screen-[id number] 12/01/2023 Vitamin D, [id number] 12/16/2024 HIV Ab/p24 Ag with Reflex-[id number] [id number] IGP, CtNg Culture 30 Plus Comp. Metabolic Panel [id number] RPR Qn+TP [id number] 12/01/2023 HCV Antibody-[id number] 12/01/2023 Next Appt Details Provider Name:Delphine tong, 12/22/2025 08:20:00 AM, [address], [address], [place], [address], Insurance Providers Payer Name Payer Address Payer Phone Subscriber Number Group Number Insured Name Patient Relationship to Insured Coverage Start Date Coverage End Date [facility] [address] [address] [place] [address] [id number] CHARLY GILLIAM Self - patient is the [...]
== END 2025-07-09 09:07 | disposition home or self-care (01) ==
LOC: HO.HMCFM 08:18
PROVIDERS: PCP Physician Assistant; Visit Provider Physician Assistant
DX: L23.9 Allergic contact dermatitis, unspecified cause (principal); N80.9 Endometriosis, unspecified; D05.12 Intraductal carcinoma in situ of left breast; E53.8 Deficiency of other specified B group vitamins; R53.83 Other fatigue

== ENCOUNTER 2025-07-09 08:17 | Outpatient (REF) | payer OTHER, SELFPAY ==
[2025-07-09 11:25] LABS: MANUAL DIFF FLAG NO
[2025-07-09 11:28] LABS: Hematocrit 40.9 % (37.0-47.0); Hemoglobin 13.0 g/dl (12.0-16.0); Imm Gran Abs Auto 0.02 X10*3/uL (0.00-0.03); Imm Gran Pct Auto 0.4 % (0.0-0.4); Lymphocytes Absolute Auto 1.0 X10*3/uL (1.2-4.9); Mean Corpuscular HGB Conc 31.8 g/dl (31.0-35.0); Mean Corpuscular Hemoglobin 29.3 pg (27.0-33.0); Mean Corpuscular Volume 92.1 fL (80.0-98.0); NRBC Abs Auto 0.000 X10*3/uL (0.0-0.012); NRBC Pct Auto 0.0 /100WBC (0.0-0.2); Platelet Count 207 X10*3/uL (160-400); Red Blood Count 4.44 X10*6/uL (4.20-5.50); White Blood Count 5.4 X10*3/uL (4.8-10.8)
[2025-07-09 12:21] LABS: Alanine Aminotransferase 20 U/L (0-31); Albumin Level 4.8 g/dL (3.5-5.0); Alkaline Phosphatase 64 U/L (39-117); Anion Gap 9 (12-20); Aspartate Amino Transferase 21 U/L (5-31); Blood Urea Nitrogen 14 mg/dL (9-16); Calcium 9.5 mg/dL (8.4-10.2); Carbon Dioxide 28 mmol/L (22-29); Chloride 106 mmol/L (96-108); Cholesterol 201 mg/dL (<200); Estimated Glomerular Filt Rate > 60; HDL Cholesterol 46 mg/dL (>40); Iron 82 mcg/dL (30-160); Percent Iron Saturation 25 % (15-50); Potassium 3.8 mmol/L (3.3-5.1); Sodium 139 mmol/L (135-145); Total Iron Binding Capacity 332 mcg/dL (228-428); Total Protein 7.6 g/dL (6.5-8.0); Triglycerides 141 mg/dL (<150); Unsaturated Iron Binding 250 ug/dL
[2025-07-09 12:24] LABS: Erythrocyte Sedimentation Rate 12 MM/HR (0-20)
[2025-07-09 13:03] LABS: Folate 6.5 ng/mL (> or = 4.0); Vitamin B12 304 pg/mL (200-900)
[2025-07-11 12:53] LABS: Anti Nuclear Antibody Screen NEGATIVE (NEGATIVE)
== END 2025-07-09 08:18 | disposition home or self-care (01) ==
LOC: HO.WFDLDS 08:17
PROVIDERS: PCP Physician Assistant; Visit Provider Physician Assistant
DX: Z13.220 Encounter for screening for lipoid disorders (principal); Z00.00 Encounter for general adult medical examination without abnormal findings; E53.8 Deficiency of other specified B group vitamins; D05.12 Intraductal carcinoma in situ of left breast; R53.83 Other fatigue; L23.9 Allergic contact dermatitis, unspecified cause; N80.9 Endometriosis, unspecified; Z79.890 Hormone replacement therapy; Z79.899 Other long term (current) drug therapy
CPT/HCPCS: 36415; 80053; 80061; 82607; 82746; 83540; 84443; 85025; 85652; 86038; 86140; 99212